=== PATIENT | female | born 2000 | race Caucasian/White ===

== ENCOUNTER 2020-06-19 02:53 | Outpatient (CLI) | payer BC, SELFPAY ==
[2020-06-21 14:02] LABS: Troponin T, 5th gen, P <6 ng/L (<=10)
== END 2020-06-19 02:54 | disposition home or self-care (01) ==
PROVIDERS: Visit Provider Physician Assistant
DX: Z86.16 Personal history of COVID-19 (principal); Z13.6 Encounter for screening for cardiovascular disorders
CPT/HCPCS: 36415; 84484

== ENCOUNTER 2020-06-19 03:12 | Outpatient (CLI) | payer BC, SELFPAY ==
--- NOTE | 2020-06-19 13:30 | RT.EKG_ITS ---
APPROVED REPORT Exam: Resting ECG Patient Location: O HR:68 bpm ECG Measurements Heart Rate 68 AXIS NE 118 P 35 QRSd 88 QRS 65 QT 391 T 39 QTc 416 Conclusion Sinus rhythm...normal P axis, V-rate 60- 99
== END 2020-06-19 03:13 | disposition home or self-care (01) ==
LOC: RT 03:12
PROVIDERS: Visit Provider Family Medicine
DX: Z86.16 Personal history of COVID-19 (principal); Z13.6 Encounter for screening for cardiovascular disorders
CPT/HCPCS: 93005; 93010